=== PATIENT | female | born 1960 | race Caucasian/White ===

== ENCOUNTER 2019-09-29 01:13 | Emergency (ER) | payer OTHER ==
[~2019-09-29] VITALS: Ht 170.2 cm; Wt 100.2 kg
[2019-09-29 01:17] VITALS: Ht 170.2 cm; Wt 100.2 kg
[2019-09-29 02:25] LABS: BASOPHIL % 0.9 % (0-2); PLATELET COUNT 391 x10^3mcL (130-400); RED CELL DISTRIBUTION WIDTH 13.9 % (11.5-14.5)
[2019-09-29 02:26] LABS: CALCIUM 9.9 mg/dL (8.5-10.1); CARBON DIOXIDE 35.5 mmol/L (21-32); CREATININE SERUM 1.3 mg/dL (0.6-1.0); POTASSIUM SERUM 4.1 mmol/L (3.5-5.1)
[2019-09-29 02:30] LABS: BILIRUBIN TOTAL 0.88 mg/dL (0.20-1.00)
[2019-09-29 02:35] LABS: TOTAL PROTEIN, SERUM 9.5 g/dL (6.4-8.2)
[2019-09-29 03:45] LABS: AMPHETAMINE QUAL UR POSITIVE (See below)
[2019-09-29 05:58] VITALS: BP 176/82
== END 2019-09-29 05:58 | disposition home or self-care (01) ==
LOC: ED 01:13
PROVIDERS: Emergency Medicine
DX: R07.89 Other chest pain (principal); F15.10 Other stimulant abuse, uncomplicated; K21.9 Gastro-esophageal reflux disease without esophagitis
CPT/HCPCS: J2060; J2270; J2405; Q0092

== ENCOUNTER 2020-04-25 18:03 | Emergency (ER) | payer SELFPAY ==
[~2020-04-25] VITALS: Ht 170.2 cm; Wt 106.6 kg
[2020-04-25 18:21] VITALS: Ht 170.2 cm; Wt 106.6 kg
[2020-04-25 19:05] LABS: PLATELET COUNT 391 x10^3mcL (130-400); RED CELL DISTRIBUTION WIDTH 14.2 % (11.5-14.5)
[2020-04-25 19:11] LABS: CALCIUM 9.9 mg/dL (8.5-10.1); CARBON DIOXIDE 36.6 mmol/L (21-32); CREATININE SERUM 1.5 mg/dL (0.6-1.0); POTASSIUM SERUM 3.1 mmol/L (3.5-5.1)
[2020-04-25 19:15] LABS: ALBUMIN 3.9 g/dL (3.4-5.0); BILIRUBIN TOTAL 1.1 mg/dL (0.20-1.00)
[2020-04-25 19:16] LABS: TOTAL PROTEIN, SERUM 9.1 g/dL (6.4-8.2)
[2020-04-25 19:33] LABS: BAND NEUTROPHIL 0 % (0-10); BASOPHIL 0 % (0-2); SEGMENTED NEUTROPHILS 93 % (37-75)
[2020-04-25 19:35] LABS: rbc morphology (normal/abnorm) NORMAL (NORMAL)
[2020-04-25 21:59] LABS: AMPHETAMINE QUAL UR POSITIVE (See below)
[2020-04-25 22:03] VITALS: BP 157/85
== END 2020-04-25 22:42 | disposition home or self-care (01) ==
LOC: ED 18:03
PROVIDERS: Emergency Medicine
DX: R07.2 Precordial pain (principal); R11.2 Nausea with vomiting, unspecified; D72.829 Elevated white blood cell count, unspecified
CPT/HCPCS: 83880; J2060; J2765; J3490; J7030; Q0092